=== PATIENT | male | born 1990 | race Caucasian/White ===

== ENCOUNTER 2017-05-04 12:19 | Emergency (ER) | payer OTHER ==
[2017-05-04 12:33] VITALS: BP 129/82
[2017-05-04] MEDS ORDERED: LIDO:MAALOX:DONNATAL 1:1:1 15 ML SINGLE DOSE SWSW ONE (12:45)
[2017-05-04] MEDS ORDERED: FAMOTIDINE 20 MG TABLET. PO ONE (12:45)
[2017-05-04] MEDS ORDERED: ONDANSETRON ODT 4 MG TAB.RAPDIS. PO ONE (12:45)
[2017-05-04] MEDS ORDERED: OMEP20TA8 PO (12:50)
[2017-05-04] MEDS ORDERED: PROC10TA57 PO (12:50)
--- NOTE | 2017-05-04 12:50 | PHYS DOC ---
Past Medical History Past Medical History: No Pertinent History, Other Additional Past Medical Histor: pneumothorax x 2, chest tube x 1 Past Surgical History: No Surgical History Alcohol Use: None Drug Use: None Adult General Chief Complaint Chief Complaint: ABDOMINAL PAIN HPI HPI Patient is a 26 year old male with history of acid reflux who presents today with mild midepigastric abdominal pain that has been going on intermittently for 3 days. Patient states "I need some medicine for my stomach". He states the "last time i had this i came here and they gave me medicines and it stopped". He goes father to state he eats spicy foods which can him acid reflux issues. Patient denies any fever. Denies any diarrhea. He states he has had a couple episodes of vomiting. Denies any hematemesis. Review of Systems Review of Systems Constitutional: Denies fever or chills [] Eyes: Denies change in visual acuity, redness, or eye pain [] HENT: Denies nasal congestion or sore throat [] Respiratory: Denies cough or shortness of breath [] Cardiovascular: No additional information not addressed in HPI [] GI: epigastric abdominal pain, with vomiting, denies bloody stools or diarrhea [] : Denies dysuria or hematuria [] Musculoskeletal: Denies back pain or joint pain [] Integument: Denies rash or skin lesions [] Neurologic: Denies headache, focal weakness or sensory changes [] Allergies Allergies Allergies Coded Allergies Type Severity Reaction Last Updated Verified No Known Drug Allergies 06/26/15 No Physical Exam Physical Exam Constitutional: Thin appearing, no acute distress, non-toxic appearance. [] HENT: Normocephalic, atraumatic, bilateral external ears normal, oropharynx moist, no oral exudates, nose normal. [] Eyes: PERRLA, EOMI, conjunctiva normal, no discharge. [] Neck: Normal range of motion, no tenderness, supple, no stridor. [] Cardiovascular:Heart rate regular rhythm, no murmur [] Lungs & Thorax: Bilateral breath sounds clear to auscultation [] Abdomen: Bowel sounds normal, soft, no RUQ tenderness or RLQ tenderness. Slight epigastric tenderness on exam, no masses, no pulsatile masses. [] Skin: Warm, dry, no erythema, no rash. [] Back: No tenderness, no CVA tenderness. [] Extremities: No tenderness, no cyanosis, no clubbing, ROM intact, no edema. [] Neurologic: Alert and oriented X 3, normal motor function, normal sensory function, no focal deficits noted. [] Psychologic: Affect normal, judgement normal, mood normal. [] Current Patient Data Vital Signs Vital Signs Date Time Temp Pulse Resp B/P (MAP) Pulse Ox O2 Delivery O2 Flow Rate FiO2 05/04/17 12:33 97.7 73 18 129/82 (98) 98 Room Air 97.7 EKG EKG [] Radiology/Procedures Radiology/Procedures [] Course & Med Decision Making Course & Med Decision Making Pertinent Labs and Imaging studies reviewed. (See chart for details) This is a 26-year-old male patient with a history of acid reflex presents today with epigastric abdominal pain intermittently for 3 days with a couple episodes of vomiting. Patient does not take anything for his acid reflex. Will be given GI cocktail and Zofran and famotidine in the ED. He states his had similar drugs with good relief. Will be discharged with Compazine and omeprazole. Encouraged to consider taking an antacid every day and cut back on spicy foods which he admitted to consuming regularly. Dragon Disclaimer Dragon Disclaimer This electronic medical record was generated, in whole or in part, using a voice recognition dictation system. Departure Departure Impression: Primary Impression: Vomiting Additional Impressions: Acid reflux Abdominal pain Disposition: 01 HOME, SELF-CARE Condition: STABLE Referrals: NO PCP (PCP) XIOMARA DUBOIS MD follow up in one week Patient Instructions: Abdominal Pain, Diet for Gastroesophageal Reflux Disease , Adult, [id number], Gastroesophageal Reflux Disease, Adult, Nausea and Vomiting, [id number] Additional Instructions: You were seen with abdominal pain suspicious of acid reflex. Consider avoiding spicy foods. Consider taking an anti-acids every day to prevent acid reflex. Consider following up with the provided marketing database analyst in the next 7 days. Scripts Omeprazole (OMEPRAZOLE) 20 Mg Tablet. 1 TAB PO DAILY, #90 TAB 1 Refill Prov: JEROME ADAMS APRN 05/04/17 Prochlorperazine Maleate (Compazine) 10 Mg Tablet 10 MG PO Q8HRS, #20 TAB Prov: JEROME ADAMS APRN 05/04/17 Problem Qualifiers Primary Impression: Vomiting Vomiting type: unspecified Vomiting Intractability: non-intractable Nausea presence: unspecified Qualified Codes: R11.10 - Vomiting, unspecified Additional Impressions: Acid reflux Esophagitis presence: esophagitis presence not specified Qualified Codes: K21.9 - Gastro-esophageal reflux disease without esophagitis Abdominal pain Abdominal location: epigastric Qualified Codes: R10.13 - Epigastric pain JEROME ADAMS APRN May 04, 2017 12:50
== END 2017-05-04 13:19 | disposition home or self-care (01) ==
LOC: ER 12:19
DX: K21.9 Gastro-esophageal reflux disease without esophagitis (principal)
CPT/HCPCS: 99284; Q0162

== ENCOUNTER 2020-07-27 11:50 | Emergency (ER) | payer MEDICAID, OTHER ==
[~2020-07-27] VITALS: Ht 182.9 cm; Wt 71.0 kg
[~2020-07-27 11:50] MED LIST: OMEP20TA8 PO; PROC10TA57 PO
[2020-07-27 12:12] VITALS: BP 134/75
--- NOTE | 2020-07-27 12:29 | ED.ADGEN ---
Past Medical History Past Medical History: No Pertinent History, Other Additional Past Medical Histor: pneumothorax x 2, chest tube x 1 Past Surgical History: No Surgical History Smoking Status: Current Some Day Smoker Alcohol Use: None Drug Use: None General Adult EDM: Chief Complaint: ABDOMINAL PAIN HPI: HPI: Patient is a 29 year old male who presents to the emergency department with no current complaints. Patient reports that he thinks he might need some pain medication because last night he had some severe abdominal pain that was re lieved after he had a bowel movement. He denies any recent diarrhea, nausea, vomiting, constipation, bloody stools, dysuria, hematuria, penile discharge, fever, fatigue, body aches, cough, shortness of breath, or chest pain. Patient currently denies any pain or complaints. Review of Systems: Review of Systems: Complete ROS is negative unless otherwise noted in HPI. Allergies: Allergies: Allergies Coded Allergies Type Severity Reaction Last Updated Verified No Known Drug Allergies 06/26/15 No Physical Exam: PE: See Above Constitutional: Well developed, well nourished, no acute distress, non-toxic appearance. [] HENT: Normocephalic, atraumatic, bilateral external ears normal, nose normal. [] Eyes: PERRLA, EOMI, conjunctiva normal, no discharge. [] Neck: Normal range of motion, no stridor. [] Cardiovascular:Heart rate regular rhythm Lungs & Thorax: Respirations even and unlabored, no retractions, no respiratory distress Abdomen: soft, no tenderness, no palpable masses Skin: Warm, dry, no erythema, no rash. [] Extremities: No cyanosis, ROM intact, no edema. [] Neurologic: Alert and oriented X 3, no focal deficits noted. [] Psychologic: Affect normal, judgement normal, mood normal. [] Current Patient Data: Vital Signs: Vital Signs Date Time Temp Pulse Resp B/P (MAP) Pulse Ox O2 Delivery O2 Flow Rate FiO2 07/27/20 12:12 97.9 72 18 134/75 (94) 100 Room Air 97.9 EKG: EKG: [] Heart Score: Risk Factors: Risk Factors: DM, Current or recent (<one month) smoker, HTN, HLP, family history of CAD, obesity. Risk Scores: Score 0 - 3: 2.5% MACE over next 6 weeks - Discharge Home Score 4 - 6: 20.3% MACE over next 6 weeks - Admit for Clinical Observation Score 7 - 10: 72.7% MACE over next 6 weeks - Early Invasive Strategies Radiology/Procedures: Radiology/Procedures: [] Course & Med Decision Making: Course & Med Decision Making Pertinent Labs and Imaging studies reviewed. (See chart for details) [] Wild Disclaimer: Wild Disclaimer: This electronic medical record was generated, in whole or in part, using a voice recognition dictation system. Departure Departure Impression: Primary Impression: Abdominal pain Disposition: 01 DC HOME SELF CARE/HOMELESS Condition: STABLE Referrals: NO PCP (PCP) Patient Instructions: Abdominal Pain (Nonspecific) Additional Instructions: Increase fluid and fiber intake to prevent constipation. Follow up with your primary care doctor in 1-2 days. Return to the ER if your symptoms worsen or you develop a fever. [facility] [address] [place] [address] [facility] [address] [place] [address] [facility] [address] [facility] [place] [address] [facility] [address] [place] [address] [facility] [address] [place] [address] [facility] [address] [place] [address] [facility] [address] [place] [address] [facility] [address] [place] [address] [facility] [address] [place] [address] [facility] [address] [place] [address] Problem Qualifiers Primary Impression: Abdominal pain Abdominal location: unspecified location Qualified Codes: R10.9 - Unspecified abdominal pain SERGIO SUAZO SENIOR [employer]YNAMICS CRM DEVELOPER Jul 27, 2020 12:29
== END 2020-07-27 12:43 | disposition home or self-care (01) ==
LOC: ER 11:50
DX: R10.9 Unspecified abdominal pain (principal); Z98.890 Other specified postprocedural states; Z87.891 Personal history of nicotine dependence
CPT/HCPCS: 99281

== ENCOUNTER 2020-11-22 22:34 | Emergency (ER) | payer OTHER ==
[~2020-11-22] VITALS: Ht 182.9 cm; Wt 80.0 kg
[2020-11-23] MEDS ORDERED: FAMO20TA5 PO (01:21)
--- NOTE | 2020-11-23 01:22 | PHYS DOC ---
Past Medical History Past Medical History: GERD, Other Additional Past Medical Histor: pneumothorax x 2, chest tube x 1 Past Surgical History: No Surgical History Smoking Status: Current Some Day Smoker Alcohol Use: None Drug Use: None General Adult EDM: Chief Complaint: ABDOMINAL PAIN HPI: HPI: Patient is a 29-year-old male presenting with mother from home for abdominal pain. Abdominal pain that started 2 hours ago. Reports eating approximately 3 hours prior, ate a significant amount of pork chops that were homemade and corn. Took Tums, pain which was initially 10/10 severity is now 1/10 severity. Reports this pain concerned him prompting him to come in for evaluation. States he just needs pain meds any will leave Review of Systems: Review of Systems: Fourteen body systems of review of systems have been reviewed. See HPI for pertinent positives and negative responses, other reyes all other systems are negative, non-pertinent or non-contributory Heart Score: C/O Chest Pain: No Risk Factors: Risk Factors: DM, Current or recent (<one month) smoker, HTN, HLP, family history of CAD, obesity. Risk Scores: Score 0 - 3: 2.5% MACE over next 6 weeks - Discharge Home Score 4 - 6: 20.3% MACE over next 6 weeks - Admit for Clinical Observation Score 7 - 10: 72.7% MACE over next 6 weeks - Early Invasive Strategies Allergies: Allergies: Allergies Coded Allergies Type Severity Reaction Last Updated Verified No Known Drug Allergies 06/26/15 No Physical Exam: PE: Constitutional: Well developed, well nourished, no acute distress, non-toxic appearance. HENT: Normocephalic, atraumatic, bilateral external ears normal, oropharynx moist, no oral exudates, nose normal. Eyes: PERRLA, EOMI, conjunctiva normal, no discharge. Neck: Normal range of motion, no tenderness, supple, no stridor. Cardiovascular: Heart rate regular, sinus rhythm, no murmurs rubs or gallops Lungs & Thorax: Bilateral breath sounds clear to auscultation Abdomen: Bowel sounds normal, soft, no tenderness, no masses, no pulsatile masses. Nonsurgical abdomen, no peritoneal signs Skin: Warm, dry, no erythema, no rash. Back: No tenderness, no CVA tenderness. Extremities: No tenderness, no cyanosis, no clubbing, ROM intact, no edema. Neurologic: Alert and oriented X 3, grossly normal motor & sensory function, no focal deficits noted. Psychologic: Affect normal, judgement normal, mood normal. Current Patient Data: Labs: Current Medications Medications (Trade) Dose Ordered Sig/Hasmukh Route PRN Reason Start Time Stop Time Status Last Admin Dose Admin Famotidine (Pepcid) 20 mg 1X ONCE PO 11/23/20 02:00 11/23/20 02:01 DC 11/23/20 01:40 Vital Signs: Vital Signs Date Time Temp Pulse Resp B/P (MAP) Pulse Ox O2 Delivery O2 Flow Rate FiO2 11/23/20 00:55 98.4 80 16 133/68 (89) 100 98.4 11/23/20 01:50 Room Air Vital Signs Date Time Temp Pulse Resp B/P (MAP) Pulse Ox O2 Delivery O2 Flow Rate FiO2 11/23/20 01:50 76 18 125/66 (85) 99 Room Air 11/23/20 00:55 98.4 98.4 EKG: EKG: [] Radiology/Procedures: Radiology/Procedures: [] Course & Med Decision Making: Course & Med Decision Making Discussed with the patient all findings and diagnostic testing. I discussed most likely diagnosis of indigestion/GERD. Patient complaints improved with home Tums administration. Supportive care practices advised, I did offer to prescribe acid angelo for short-term use until he can be seen in outpatient setting by primary care physician for repeat evaluation, he and mother excepted prescription. I did disclose this might be an acute presentation more concerning pathology but reviewed PERC, heart scores etc., little indication for further diagnostic work-up in ER setting. I stressed need for close outpatient follow-up to review today's ER visit. Strict return precautions were also discussed at length with good understanding by patient. Patient voiced understanding and agreement with the plan. Patient knows to come back for repeat evaluation if concerning signs or symptoms present prior to outpatient follow- up. Hemodynamically stable, ambulatory and well-appearing at time of disposition. Dragon Disclaimer: Dragon Disclaimer: This electronic medical record was generated, in whole or in part, using a voice recognition dictation system. Departure Departure Impression: Primary Impression: Acid reflux Disposition: HOME / SELF CARE / HOMELESS Condition: STABLE Referrals: NO PCP (PCP) Patient Instructions: Diet for Gastroesophageal Reflux Disease, Adult, [id number], Gastroesophageal Reflux Disease, Adult Additional Instructions: You have been evaluated in the Emergency Department today for abdominal pain. Your evaluation was not suggestive of any emergent condition requiring medical intervention at this time. However, some abdominal problems make take more time to appear. Therefore, it is important for you to watch for any new symptoms or worsening of your current condition. As discussed, you are likely suffering from acid reflux that should respond to dietary changes and daily medications. I have prescribed you a safe daily medication that should not be used long-term but should help provide temporary symptomatic relief As discussed, it is vital that you contact your primary care physician to review ER visit today. You would benefit from close continuity in outpatient setting for repeat evaluation and if needed, a gastrointestinal consultation Return to the Emergency Department if you experience worsening pain, persistent fevers greater than 100.4, recurrent vomiting, blood in vomit, blood in stool, dark tarry stool, chest pain, difficulty breathing, or any other concerning symptoms. Scripts Famotidine (FAMOTIDINE) 20 Mg Tablet 20 MG PO BID for 30 Days, #60 TAB Prov: CODI CAPUTO DO 11/23/20 CODI CAPUTO DO November 23, 2020 01:22
[2020-11-23 01:50] VITALS: BP 125/66
[2020-11-23] MEDS ORDERED: FAMOTIDINE 20 MG TABLET. PO ONE (02:00)
== END 2020-11-23 01:58 | disposition home or self-care (01) ==
LOC: ER 22:34
DX: K21.9 Gastro-esophageal reflux disease without esophagitis (principal); F17.200 Nicotine dependence, unspecified, uncomplicated
CPT/HCPCS: 99282

== ENCOUNTER 2021-03-29 20:08 | Emergency (ER) | payer OTHER ==
[~2021-03-29] VITALS: Ht 175.3 cm; Wt 47.2 kg
[~2021-03-29 20:08] MED LIST changes: +FAMO20TA5 PO
[2021-03-29 21:16] VITALS: BP 127/75
[2021-03-29] MEDS ORDERED: CYCL10TA2 PO (21:37)
[2021-03-29] MEDS ORDERED: TRAM-48 PO (21:37)
--- NOTE | 2021-03-29 21:42 | PHYS DOC ---
Past Medical History Past Medical History: GERD, Other Additional Past Medical Histor: pneumothorax x 2, chest tube x 1 Past Surgical History: Other Additional Past Surgical Histo: LEFT CHEST TUBE Smoking Status: Former Smoker Alcohol Use: None Drug Use: None General Adult EDM: Chief Complaint: BACK PAIN - NO INJURY HPI: HPI: Patient is a 30 year old male presents with a chief complaint of left flank/back pain. Patient states symptoms have been ongoing for 1 day. Patient does not recall any specific injury. Patient has pain left back flank region tender to palpation exacerbated with range of motion relieved improved with rest and ibuprofen. Patient without any midline T or L-spine tenderness, he has no saddle anesthesia or loss of bowel or bladder. Patient ambulated into the ER. Review of Systems: Review of Systems: Constitutional: Denies fever or chills. [] Eyes: Denies change in visual acuity. [] HENT: Denies nasal congestion or sore throat. [] Respiratory: Denies cough or shortness of breath. [] Cardiovascular: Denies chest pain or edema. [] GI: Denies abdominal pain, nausea, vomiting, bloody stools or diarrhea. [] : Denies dysuria. [] Musculoskeletal: Positive back pain Integument: Denies rash. [] Neurologic: Denies headache, focal weakness or sensory changes. [] Endocrine: Denies polyuria or polydipsia. [] Lymphatic: Denies swollen glands. [] Psychiatric: Denies depression or anxiety. [] Heart Score: C/O Chest Pain: N/A Risk Factors: Risk Factors: DM, Current or recent (<one month) smoker, HTN, HLP, family history of CAD, obesity. Risk Scores: Score 0 - 3: 2.5% MACE over next 6 weeks - Discharge Home Score 4 - 6: 20.3% MACE over next 6 weeks - Admit for Clinical Observation Score 7 - 10: 72.7% MACE over next 6 weeks - Early Invasive Strategies Current Medications: Current Medications Medications (Trade) Dose Ordered Sig/Hasmukh Start Time Stop Time Status Last Admin Dose Admin Cyclobenzaprine HCl (Flexeril) 10 mg 1X ONCE 03/29/21 22:00 03/29/21 22:01 Ketorolac Tromethamine (Toradol Im) 60 mg 1X ONCE 03/29/21 22:00 03/29/21 22:01 Tramadol HCl (Ultram) 50 mg 1X ONCE 03/29/21 22:00 03/29/21 22:01 Allergies: Allergies: Allergies Coded Allergies Type Severity Reaction Last Updated Verified No Known Drug Allergies 06/26/15 No Physical Exam: PE: General: alert, no acute distress. Skin: warm, dry and intact, no erythema, no rash. HENT: bilateral external ears normal, oropharynx moist, nose normal. Head:: Normocephalic, atraumatic. Neck: Trachea midline. Eyes: EOMI, Normal conjunctiva, No drainage CARDIOVASCULAR: Regular rate and rhythm RESPIRATORY: No respiratory distress Back: Full range of motion. MUSCULOSKELETAL: Full range of motion of bilateral upper and lower extremities. Left paraspinal flank pain lumbar region no midline T or L-spine step-off or deformity GASTROINTESTINAL: Abdomen soft without rebound or guarding. NEUROLOGICAL: Alert and noted to person, place and time. No neurological deficits observed Psychiatric: Cooperative. Normal judgment Current Patient Data: Vital Signs: Vital Signs Date Time Temp Pulse Resp B/P (MAP) Pulse Ox O2 Delivery O2 Flow Rate FiO2 03/29/21 20:20 97.5 75 22 135/90 (105) 99 Room Air 97.5 EKG: EKG: [] Radiology/Procedures: Radiology/Procedures: [] Course & Med Decision Making: Course & Med Decision Making Pertinent Labs and Imaging studies reviewed. (See chart for details) [] Rated with Toradol and cyclobenzaprine. Discharged home on Ultram and Flexeril. Wild Disclaimer: Wild Disclaimer: This electronic medical record was generated, in whole or in part, using a voice recognition dictation system. Departure Departure Impression: Primary Impression: Back pain Disposition: HOME / SELF CARE / HOMELESS Condition: STABLE Referrals: NO PCP (PCP) Patient Instructions: Back Pain, Adult Scripts Cyclobenzaprine Hcl (CYCLOBENZAPRINE HCL) 10 Mg Tablet 1 TAB PO QHS, #20 TAB Prov: DERRICK LITTLE DO 03/29/21 DERRICK LITTLE I DO Mar 29, 2021 21:42
[2021-03-29] MEDS ORDERED: CYCLOBENZAPRINE 10 MG TABLET. PO ONE (22:00)
[2021-03-29] MEDS ORDERED: traMADol 50 MG TABLET PO ONE (22:00)
[2021-03-29] MEDS ORDERED: KETOROLAC 60 MG/2 ML VIAL. IM ONE (22:00)
== END 2021-03-29 22:00 | disposition home or self-care (01) ==
LOC: ER 20:08
DX: M54.5 Low back pain (principal); K21.9 Gastro-esophageal reflux disease without esophagitis; Z87.891 Personal history of nicotine dependence
CPT/HCPCS: 99283

== ENCOUNTER 2021-04-01 11:08 | Emergency (ER) | payer OTHER ==
[~2021-04-01] VITALS: Ht 175.3 cm; Wt 48.5 kg
[~2021-04-01 11:08] MED LIST changes: +CYCL10TA2 PO; +TRAM-48 PO
[2021-04-01] MEDS ORDERED: DEXAMETHASONE 4 MG TABLET PO ONE (11:30)
[2021-04-01] MEDS ORDERED: KETOROLAC 60 MG/2 ML VIAL. IM ONE (11:30)
[2021-04-01] MEDS ORDERED: IBUP-1007 PO (11:37)
--- NOTE | 2021-04-01 11:37 | PHYS DOC ---
Past Medical History Past Medical History: GERD, Other Additional Past Medical Histor: pneumothorax x 2, chest tube x 1 (LINDSEY RICCI JAVA TECH LEAD) Past Surgical History: Other Additional Past Surgical Histo: LEFT CHEST TUBE (JULIALINDSEY JAVA TECH LEAD) Smoking Status: Current Some Day Smoker Alcohol Use: None Drug Use: None (LINDSEY RICCI JAVA TECH LEAD) General Adult EDM: Chief Complaint: BACK PAIN - NO INJURY HPI: HPI: Patient is a 30 year old male who presents with was here 3 days ago and got cyclobenzaprine for his left lower back pain with a sharp shooting pain down his leg. Patient has been taking ibuprofen previously when it was helping. Since patient has been here and given the cyclobenzaprine he states that is not helping his pain. It was explained to the patient that the cyclobenzaprine is not a pain medication is a muscle relaxer. Patient is educated that he can take ibuprofen with the cyclobenzaprine. Patient is here wanting a Toradol shot. Patient currently rates his pain at a 8 out of 10 sharp shooting down his leg. States the back is better. Denies saddle paresthesia or loss of bowel and bladder. There is no focal weakness and he denies any focal weakness. Has a history of a pneumothorax x2 and smoking. (LINDSEY RICCI JAVA TECH LEAD) Review of Systems: Review of Systems: Constitutional: Denies fever or chills. [] Eyes: Denies change in visual acuity. [] HENT: Denies nasal congestion or sore throat. [] Respiratory: Denies cough or shortness of breath. [] Cardiovascular: Denies chest pain or edema. [] GI: Denies abdominal pain, nausea, vomiting, bloody stools or diarrhea. [] : Denies dysuria. [] Musculoskeletal: Denies back pain or joint pain. + Left back of leg sharp shooting pain [] Integument: Denies rash. [] Neurologic: Denies headache, focal weakness or sensory changes. [] Endocrine: Denies polyuria or polydipsia. [] Lymphatic: Denies swollen glands. [] Psychiatric: Denies depression or anxiety. [] (LINDSEY RICCI JAVA TECH LEAD) Heart Score: C/O Chest Pain: No Risk Factors: Risk Factors: DM, Current or recent (<one month) smoker, HTN, HLP, family history of CAD, obesity. Risk Scores: Score 0 - 3: 2.5% MACE over next 6 weeks - Discharge Home Score 4 - 6: 20.3% MACE over next 6 weeks - Admit for Clinical Observation Score 7 - 10: 72.7% MACE over next 6 weeks - Early Invasive Strategies (LINDSEY RICCI APRN) Allergies: Allergies: Allergies Coded Allergies Type Severity Reaction Last Updated Verified No Known Drug Allergies 04/01/21 No (LINDSEY RICCI APRN) Physical Exam: PE: Constitutional: Well developed, well nourished, no acute distress, non-toxic appearance. [] HENT: Normocephalic, atraumatic, bilateral external ears normal, oropharynx moist, no oral exudates, nose normal. [] Eyes: PERRLA, EOMI, conjunctiva normal, no discharge. [] Neck: Normal range of motion, no tenderness, supple, no stridor. [] Cardiovascular:Heart rate regular rhythm, no murmur [] Lungs & Thorax: Bilateral breath sounds clear to auscultation [] Abdomen: Bowel sounds normal, soft, no tenderness, no masses, no pulsatile masses. [] Skin: Warm, dry, no erythema, no rash. [] Back: No tenderness, no CVA tenderness. [] Extremities: No tenderness, no cyanosis, no clubbing, ROM intact, no edema. [] Neurologic: Alert and oriented X 3, normal motor function, normal sensory function, no focal deficits noted. [] Psychologic: Affect normal, judgement normal, mood normal. [] Normal physical exam ([facility]) Current Patient Data: Vital Signs: Vital Signs Date Time Temp Pulse Resp B/P (MAP) Pulse Ox O2 Delivery O2 Flow Rate FiO2 04/01/21 11:18 98.4 88 18 129/65 (86) 100 98.4 ([facility]) EKG: EKG: [] (LINDSEY RICCI APRN) Radiology/Procedures: Radiology/Procedures: [] ([facility]) Course & Med Decision Making: Course & Med Decision Making Pertinent Labs and Imaging studies reviewed. (See chart for details) See HPI. Alert and oriented x4. Ambulatory steady gait. Speaks in full clear sentences. Skin pink warm and dry. No extremity edema. Pedal pulse strong are present. Full range of motion of the extremity. No focal weaknesses. No flank tenderness or focal bony spinal tenderness. No saddle paresthesia. Patient is given a dose of dexamethasone in the ED. He is given Toradol IM. He denies any urinary symptoms, fever, penile discharge, abdominal pain, nausea, vomiting, diarrhea. No tenderness to the left lower extremity with palpation. No deformity. No bruising or injury. He denies any injury. [] (LINDSEY RICCI APRN) Course & Med Decision Making I have reviewed and was available for consultation in the emergency department for this patient that was seen by midlevel provider. Agree with plan. Christina Willingham DO (CHRISTINA WILLINGHAM DO) Wild Disclaimer: Wild Disclaimer: This electronic medical record was generated, in whole or in part, using a voice recognition dictation system. (LINDSEY RICCI APRN) Departure Departure Impression: Primary Impression: Sciatica of left side Disposition: HOME / SELF CARE / HOMELESS Condition: STABLE Referrals: NO PCP (PCP) Patient Instructions: Sciatica with [facility] Additional Instructions: Follow-up with your primary care provider. You can use a heating pad to the area. Rest the area. Take medication as prescribed and with food. Drink plenty of fluids. Scripts Ibuprofen (IBUPROFEN) 600 Mg Tablet 600 MG PO PRN Q6HRS PRN for INFLAMMATION, #30 TAB Prov: LINDSEY RICCI APRN 04/01/21 LINDSEY RICCI APRN Apr 01, 2021 11:37 CHRISTINA WILLINGHAM DO Apr 01, 2021 12:24
[2021-04-01 11:55] VITALS: BP 116/68
== END 2021-04-01 11:55 | disposition home or self-care (01) ==
LOC: ER 11:08
DX: M54.42 Lumbago with sciatica, left side (principal); K21.9 Gastro-esophageal reflux disease without esophagitis; F17.200 Nicotine dependence, unspecified, uncomplicated
CPT/HCPCS: 96372; 99283; J1885